=== PATIENT | male | born 1945 | race Caucasian/White ===

== ENCOUNTER 2022-01-03 13:43 | Inpatient (IN) | payer OTHER ==
[~2022-01-03] VITALS: Ht 172.7 cm; Wt 74.1 kg
[2022-01-03] MEDS ORDERED: 0.9%NACL 1000ML 1,000 ML IV SCH (14:30)
[2022-01-03 15:12] LABS: BASOPHILS % (AUTO) 0.5 % (0.0-5.0); EOSINOPHILS % (AUTO) 2.2 % (0.0-8.0); HEMATOCRIT 36.1 % (42-54); LYMPHOCYTES % (AUTO) 19.6 % (21.0-51.0); MEAN CORPUSCULAR HEMOGLOBIN 28.3 pg (27.0-33.0); MEAN CORPUSCULAR HGB CONC 32.4 g/dL (32.0-36.0); MEAN CORPUSCULAR VOLUME 87.2 fL (79-99); MONOCYTES % (AUTO) 5.9 % (3.0-13.0); NEUTROPHILS % (AUTO) 71.4 % (40.0-77.0); PLATELET COUNT (AUTO) 349 K/uL (130-400); RED BLOOD CELL COUNT(AUTO) 4.14 MIL/uL (4.50-6.20); RED CELL DISTRIBUTION WIDTH 14.6 % (11.0-15.5)
[2022-01-03 15:39] LABS: CREATININE 1.1 mg/dL (0.5-1.5)
[2022-01-03 15:43] LABS: ALBUMIN 3.7 g/dL (3.5-5.0)
[2022-01-03] MEDS ORDERED: VANCOMYCIN 1G VIAL IVPB ONE (16:00)
[2022-01-03] MEDS ORDERED: ZOSYN 3.375GM +NS 50ML IV ONE (16:00)
[2022-01-03] MEDS ORDERED: MORPHINE 4 MG SYG IVP ONE (16:00)
[2022-01-03] MEDS ORDERED: ONDANSETRON 4MG INJ IVP ONE (16:00)
[2022-01-03] MEDS ORDERED: VANCOMYCIN 1G/250ML KIT 250 ML IV ONE (16:35)
[2022-01-03 16:37] LABS: ERYTHROCYTE SEDIMENTATION RATE 103 MM/HR (0-20)
[2022-01-03] MEDS: ZOSYN 3.375GM +NS 50ML IV SCH (19:00)
[2022-01-03] MEDS ORDERED: ACETAMINOPHEN 325 MG TAB PO PRN (19:00)
[2022-01-03] MEDS: HEPARIN 5,000 UNIT VIAL SQ SCH (19:00)
[2022-01-03] MEDS ORDERED: ONDANSETRON 4MG INJ IVP PRN (19:00)
[2022-01-03] MEDS ORDERED: VANCOMYCIN PROTOCOL PER PHARMACY IV SCH ×2 (20:00→20:30)
[2022-01-03] MEDS ORDERED: VANCOMYCIN 1.5 GM/250 ML BAG 250 ML IV ONE (20:30)
[2022-01-03] MEDS: INSULIN HUMULIN R 100 UNIT/ML 3ML SQ SCH (21:00)
[2022-01-03] MEDS: FAMOTIDINE 20MG TAB PO SCH (22:05)
[2022-01-04] MEDS: HYDROCODONE/ACETAMINOPHEN 5/325 MG TAB PO PRN ×4 (00:35→21:06)
[2022-01-04 02:49] VITALS: BP 171/88
[2022-01-04] MEDS: ZOSYN 3.375GM +NS 50ML IV SCH ×3 (03:17→20:00)
[2022-01-04] MEDS ORDERED: ASPI-1012 PO (06:24)
[2022-01-04] MEDS ORDERED: ATOR40TA71 PO (06:24)
[2022-01-04] MEDS ORDERED: METO50TA18 PO (06:24)
[2022-01-04] MEDS ORDERED: CLIN-141 PO (06:24)
[2022-01-04] MEDS ORDERED: FERR325T22 PO (06:24)
[2022-01-04] MEDS ORDERED: CHOL-34 PO (06:24)
[2022-01-04] MEDS ORDERED: CYAN100099 PO (06:24)
[2022-01-04] MEDS ORDERED: AMLO-258 PO (06:24)
[2022-01-04] MEDS ORDERED: [UNRECOGNIZED DRUG - OTHER] PO (06:24)
[2022-01-04] MEDS ORDERED: VANC125C6 PO (06:24)
[2022-01-04] MEDS ORDERED: METF-444 PO (06:24)
[2022-01-04] MEDS ORDERED: LOSA1TAB42 PO (06:24)
[2022-01-04] MEDS ORDERED: HYDR-4060 PO (06:24)
[2022-01-04 06:27] LABS: BASOPHILS % (AUTO) 0.7 % (0.0-5.0); EOSINOPHILS % (AUTO) 4.4 % (0.0-8.0); HEMATOCRIT 33.7 % (42-54); LYMPHOCYTES % (AUTO) 18.2 % (21.0-51.0); MEAN CORPUSCULAR HEMOGLOBIN 28.4 pg (27.0-33.0); MEAN CORPUSCULAR HGB CONC 32.6 g/dL (32.0-36.0); MEAN CORPUSCULAR VOLUME 86.9 fL (79-99); MONOCYTES % (AUTO) 7.4 % (3.0-13.0); PLATELET COUNT (AUTO) 318 K/uL (130-400); RED BLOOD CELL COUNT(AUTO) 3.88 MIL/uL (4.50-6.20); RED CELL DISTRIBUTION WIDTH 14.6 % (11.0-15.5); WHITE BLOOD COUNT (AUTO) 13.8 K/uL (4.8-10.8)
[2022-01-04 06:33] LABS: POTASSIUM 4.3 mmol/L (3.5-5.1)
[2022-01-04] MEDS: HEPARIN 5,000 UNIT VIAL SQ SCH ×2 (06:46→20:02)
[2022-01-04] MEDS: INSULIN HUMULIN R 100 UNIT/ML 3ML SQ SCH ×4 (06:49→20:03)
[2022-01-04 07:30] VITALS: BP 149/80
[2022-01-04] MEDS: FAMOTIDINE 20MG TAB PO SCH ×2 (09:33→20:03)
[2022-01-04 11:25] VITALS: BP 145/77
[2022-01-04] MEDS: VANCOMYCIN 1.5 GM/250 ML BAG 250 ML IV SCH (14:48)
[2022-01-04 15:30] VITALS: BP 156/77
[2022-01-04] MEDS: ATORVASTATIN 40 MG TABLET PO SCH (20:03)
[2022-01-04] MEDS: METOPROLOL TARTRATE 50 MG TAB PO SCH (20:03)
[2022-01-04 20:04] VITALS: BP 141/73
[2022-01-04 23:21] VITALS: BP 153/75
[2022-01-05] MEDS: HYDROCODONE/ACETAMINOPHEN 5/325 MG TAB PO PRN ×5 (01:45→20:14)
[2022-01-05 03:40] VITALS: BP 136/72
[2022-01-05] MEDS: ZOSYN 3.375GM +NS 50ML IV SCH ×3 (04:27→19:58)
[2022-01-05 05:18] LABS: BASOPHILS % (AUTO) 0.6 % (0.0-5.0); EOSINOPHILS % (AUTO) 5.8 % (0.0-8.0); HEMATOCRIT 31.3 % (42-54); LYMPHOCYTES % (AUTO) 25.8 % (21.0-51.0); MEAN CORPUSCULAR HEMOGLOBIN 28.7 pg (27.0-33.0); MEAN CORPUSCULAR HGB CONC 33.2 g/dL (32.0-36.0); MEAN CORPUSCULAR VOLUME 86.2 fL (79-99); MONOCYTES % (AUTO) 7.9 % (3.0-13.0); NEUTROPHILS % (AUTO) 59.6 % (40.0-77.0); PLATELET COUNT (AUTO) 306 K/uL (130-400); RED BLOOD CELL COUNT(AUTO) 3.63 MIL/uL (4.50-6.20); RED CELL DISTRIBUTION WIDTH 14.4 % (11.0-15.5); WHITE BLOOD COUNT (AUTO) 10.4 K/uL (4.8-10.8)
[2022-01-05 05:43] LABS: ALBUMIN 3.1 g/dL (3.5-5.0); MAGNESIUM 1.4 mg/dL (1.80-2.40); POTASSIUM 3.7 mmol/L (3.5-5.1); TOTAL PROTEIN, SERUM 7.6 g/dL (6.0-8.3)
[2022-01-05] MEDS: HEPARIN 5,000 UNIT VIAL SQ SCH ×2 (06:11→19:00)
[2022-01-05] MEDS ORDERED: DEXTROSE 50%-WATER 50 ML DISP.SYRIN IV PRN (07:30)
[2022-01-05] MEDS: INSULIN HUMULIN R 100 UNIT/ML 3ML SQ SCH ×4 (07:30→19:59)
[2022-01-05] MEDS ORDERED: GLUCAGON 1MG KIT 1 MG ML IM PRN (07:30)
[2022-01-05 08:03] VITALS: BP 143/72
[2022-01-05] MEDS: AMLODIPINE 5 MG TAB PO SCH (08:24)
[2022-01-05] MEDS: METOPROLOL TARTRATE 50 MG TAB PO SCH ×2 (08:24→19:58)
[2022-01-05] MEDS: LOSARTAN 100 MG TABLET PO SCH (08:24)
[2022-01-05] MEDS: ASPIRIN 325MG TAB PO SCH (08:24)
[2022-01-05] MEDS: FAMOTIDINE 20MG TAB PO SCH ×2 (08:25→19:58)
[2022-01-05] MEDS: HYDROCHLOROTHIAZIDE 25 MG TABLET PO SCH (08:25)
[2022-01-05 12:00] VITALS: BP 160/70
[2022-01-05] MEDS: VANCOMYCIN 1.5 GM/250 ML BAG 250 ML IV SCH (13:05)
[2022-01-05 16:00] VITALS: BP 147/97
[2022-01-05 19:51] VITALS: BP 80/58
[2022-01-05] MEDS: ATORVASTATIN 40 MG TABLET PO SCH (19:58)
[2022-01-05 20:14] LABS: INR 0.94 (0.85-1.15); PROTHROMBIN TIME 10.3 SEC (9.6-11.6)
[2022-01-05 20:16] LABS: PARTIAL THROMBOPLASTIN TIME 29.8 SEC (26.3-35.5)
[2022-01-05] MEDS ORDERED: HEPARIN 25,000 UNITS/250ML D5W 250 ML IV SCH (21:00)
[2022-01-05 23:36] VITALS: BP 84/53
[2022-01-06] VITALS (12 sets, daily range): BP systolic 115–180; BP diastolic 36–78
[2022-01-06] MEDS: HYDROCODONE/ACETAMINOPHEN 5/325 MG TAB PO PRN ×4 (01:24→21:09)
[2022-01-06] MEDS: ZOSYN 3.375GM +NS 50ML IV SCH ×3 (03:51→21:18)
[2022-01-06 05:41] LABS: BASOPHILS % (AUTO) 0.5 % (0.0-5.0); EOSINOPHILS % (AUTO) 5.9 % (0.0-8.0); HEMATOCRIT 33.1 % (42-54); LYMPHOCYTES % (AUTO) 27.6 % (21.0-51.0); MEAN CORPUSCULAR HEMOGLOBIN 28.5 pg (27.0-33.0); MEAN CORPUSCULAR HGB CONC 33.2 g/dL (32.0-36.0); MEAN CORPUSCULAR VOLUME 85.8 fL (79-99); MONOCYTES % (AUTO) 7.6 % (3.0-13.0); NEUTROPHILS % (AUTO) 58.2 % (40.0-77.0); PLATELET COUNT (AUTO) 287 K/uL (130-400); RED BLOOD CELL COUNT(AUTO) 3.86 MIL/uL (4.50-6.20); RED CELL DISTRIBUTION WIDTH 14.4 % (11.0-15.5); WHITE BLOOD COUNT (AUTO) 12.5 K/uL (4.8-10.8)
[2022-01-06 05:52] LABS: MAGNESIUM 1.6 mg/dL (1.80-2.40); POTASSIUM 3.9 mmol/L (3.5-5.1)
[2022-01-06] MEDS: HEPARIN 5,000 UNIT VIAL SQ SCH ×2 (06:07→21:26)
[2022-01-06] MEDS: INSULIN HUMULIN R 100 UNIT/ML 3ML SQ SCH ×3 (06:07→20:54)
[2022-01-06 06:10] LABS: PROTHROMBIN TIME 10.9 SEC (9.6-11.6)
[2022-01-06 06:31] LABS: PARTIAL THROMBOPLASTIN TIME 136.1 SEC (26.3-35.5)
[2022-01-06 07:01] LABS: ERYTHROCYTE SEDIMENTATION RATE 86 MM/HR (0-20)
[2022-01-06] MEDS: METOPROLOL TARTRATE 50 MG TAB PO SCH ×2 (09:00→21:48)
[2022-01-06] MEDS: LOSARTAN 100 MG TABLET PO SCH (09:00)
[2022-01-06] MEDS: FAMOTIDINE 20MG TAB PO SCH ×2 (09:00→21:08)
[2022-01-06] MEDS: HYDROCHLOROTHIAZIDE 25 MG TABLET PO SCH (09:00)
[2022-01-06] MEDS: ASPIRIN 325MG TAB PO SCH (09:00)
[2022-01-06] MEDS: AMLODIPINE 5 MG TAB PO SCH (09:00)
[2022-01-06] MEDS ORDERED: IODIXANOL 320 MG/ML 100 ML VIAL ONE (09:50)
[2022-01-06] MEDS ORDERED: LIDOCAINE HCL-MPF 2% 10ML AMP IJ ONE (09:50)
[2022-01-06] MEDS ORDERED: NITROGLYCERIN 50MG VIAL ONE (09:50)
[2022-01-06] MEDS ORDERED: HEPARIN 10,000 UNIT/10ML (1,000 UNIT/ML) VIAL ONE ×2 (10:02→11:00)
[2022-01-06] MEDS ORDERED: MIDAZOLAM HCL 1 MG/ML 2ML VIAL ONE (10:04)
[2022-01-06] MEDS ORDERED: NICARDIPINE 25MG INJ IV ONE (10:04)
[2022-01-06] MEDS ORDERED: FENTANYL CITRATE PF 50 MCG/1 ML 2ML VIAL ONE (10:04)
[2022-01-06] MEDS ORDERED: ASPIRIN 325MG EC TAB PO ONE (11:46)
[2022-01-06] MEDS ORDERED: CLOPIDOGREL 300MG TAB ONE (11:46)
[2022-01-06] MEDS ORDERED: GLUCAGON 1MG KIT 1 MG ML IM PRN (12:30)
[2022-01-06] MEDS ORDERED: DEXTROSE 50%-WATER 50 ML DISP.SYRIN IV PRN (12:30)
[2022-01-06] MEDS ORDERED: 0.9%NACL 1000ML 1,000 ML IV SCH (12:30)
[2022-01-06] MEDS: VANCOMYCIN 1.5 GM/250 ML BAG 250 ML IV SCH (13:15)
[2022-01-06] MEDS: MAGNESIUM 2GM PREMIX 50ML 50 ML IV PRN (18:09)
[2022-01-06] MEDS: ATORVASTATIN 40 MG TABLET PO SCH (21:08)
[2022-01-07 00:03] VITALS: BP 122/70
[2022-01-07] MEDS: HYDROCODONE/ACETAMINOPHEN 5/325 MG TAB PO PRN ×5 (01:25→21:02)
[2022-01-07] MEDS: ZOSYN 3.375GM +NS 50ML IV SCH ×3 (03:19→20:38)
[2022-01-07 04:27] VITALS: BP 120/66
[2022-01-07] MEDS: INSULIN HUMULIN R 100 UNIT/ML 3ML SQ SCH ×4 (06:05→20:40)
[2022-01-07] MEDS: HEPARIN 5,000 UNIT VIAL SQ SCH ×2 (06:48→19:44)
[2022-01-07 07:35] VITALS: BP 131/74
[2022-01-07] MEDS: ASPIRIN 325MG TAB PO SCH (09:00)
[2022-01-07] MEDS: FAMOTIDINE 20MG TAB PO SCH ×2 (09:00→20:39)
[2022-01-07] MEDS: AMLODIPINE 5 MG TAB PO SCH (09:00)
[2022-01-07] MEDS: METOPROLOL TARTRATE 50 MG TAB PO SCH ×2 (09:04→20:39)
[2022-01-07] MEDS: HYDROCHLOROTHIAZIDE 25 MG TABLET PO SCH (09:05)
[2022-01-07] MEDS: LOSARTAN 100 MG TABLET PO SCH (09:05)
[2022-01-07 11:35] VITALS: BP 118/66
[2022-01-07] MEDS: VANCOMYCIN 1.5 GM/250 ML BAG 250 ML IV SCH (12:37)
[2022-01-07] MEDS: MORPHINE 2 MG SYG IVP PRN (14:33)
[2022-01-07 15:30] VITALS: BP 123/69
[2022-01-07 19:47] VITALS: BP 128/70
[2022-01-07] MEDS: ATORVASTATIN 40 MG TABLET PO SCH (20:39)
[2022-01-08 00:36] VITALS: BP 102/61
[2022-01-08] MEDS: HYDROCODONE/ACETAMINOPHEN 5/325 MG TAB PO PRN ×5 (02:13→22:54)
[2022-01-08] MEDS: ZOSYN 3.375GM +NS 50ML IV SCH ×4 (02:14→22:53)
[2022-01-08 04:31] VITALS: BP 142/59
[2022-01-08 04:40] LABS: BASOPHILS % (AUTO) 0.5 % (0.0-5.0); EOSINOPHILS % (AUTO) 6.4 % (0.0-8.0); HEMATOCRIT 29.6 % (42-54); LYMPHOCYTES % (AUTO) 19.3 % (21.0-51.0); MEAN CORPUSCULAR HEMOGLOBIN 28.7 pg (27.0-33.0); MEAN CORPUSCULAR HGB CONC 33.1 g/dL (32.0-36.0); MEAN CORPUSCULAR VOLUME 86.8 fL (79-99); MONOCYTES % (AUTO) 9.4 % (3.0-13.0); NEUTROPHILS % (AUTO) 64.2 % (40.0-77.0); PLATELET COUNT (AUTO) 242 K/uL (130-400); RED BLOOD CELL COUNT(AUTO) 3.41 MIL/uL (4.50-6.20); RED CELL DISTRIBUTION WIDTH 14.2 % (11.0-15.5); WHITE BLOOD COUNT (AUTO) 9.4 K/uL (4.8-10.8)
[2022-01-08 04:47] LABS: MAGNESIUM 1.7 mg/dL (1.80-2.40); POTASSIUM 3.4 mmol/L (3.5-5.1)
[2022-01-08] MEDS: MAGNESIUM 2GM PREMIX 50ML 50 ML IV PRN (05:39)
[2022-01-08] MEDS: HEPARIN 5,000 UNIT VIAL SQ SCH ×2 (05:57→18:40)
[2022-01-08] MEDS: INSULIN HUMULIN R 100 UNIT/ML 3ML SQ SCH ×4 (06:22→19:55)
[2022-01-08 08:30] VITALS: BP 148/64
[2022-01-08] MEDS: METOPROLOL TARTRATE 50 MG TAB PO SCH ×2 (08:36→19:55)
[2022-01-08] MEDS: FAMOTIDINE 20MG TAB PO SCH ×2 (08:36→19:55)
[2022-01-08] MEDS: ASPIRIN 325MG TAB PO SCH (08:36)
[2022-01-08] MEDS: HYDROCHLOROTHIAZIDE 25 MG TABLET PO SCH (08:37)
[2022-01-08] MEDS: LOSARTAN 100 MG TABLET PO SCH (08:41)
[2022-01-08] MEDS: AMLODIPINE 5 MG TAB PO SCH (09:00)
[2022-01-08 11:48] VITALS: BP 126/69
[2022-01-08] MEDS: VANCOMYCIN 1.5 GM/250 ML BAG 250 ML IV SCH (12:26)
[2022-01-08] MEDS ORDERED: PHARMACY COMMUNICATION MISC SCH (14:30)
[2022-01-08 16:00] VITALS: BP 132/71
[2022-01-08] MEDS ORDERED: LIDOCAINE HCL-MPF 1% 2ML VIAL IV PRN (16:30)
[2022-01-08] MEDS ORDERED: POTASSIUM CHLORIDE 20MEQ/100ML 100 ML IV PRN (16:30)
[2022-01-08] MEDS: KCL 20 MEQ ERTAB PO PRN ×2 (18:41→22:53)
[2022-01-08] MEDS: ATORVASTATIN 40 MG TABLET PO SCH (19:55)
[2022-01-08 20:24] VITALS: BP 136/72
[2022-01-09 00:30] VITALS: BP 135/71
[2022-01-09] MEDS: HYDROCODONE/ACETAMINOPHEN 5/325 MG TAB PO PRN ×5 (03:35→23:24)
[2022-01-09 03:47] VITALS: BP 136/70
[2022-01-09] MEDS: ZOSYN 3.375GM +NS 50ML IV SCH ×3 (05:24→23:24)
[2022-01-09] MEDS: HEPARIN 5,000 UNIT VIAL SQ SCH ×2 (05:29→20:56)
[2022-01-09 05:41] LABS: MAGNESIUM 1.7 mg/dL (1.80-2.40); POTASSIUM 3.5 mmol/L (3.5-5.1)
[2022-01-09] MEDS: INSULIN HUMULIN R 100 UNIT/ML 3ML SQ SCH ×4 (06:39→20:36)
[2022-01-09 08:38] VITALS: BP 158/67
[2022-01-09] MEDS: MORPHINE 2 MG SYG IVP PRN (08:41)
[2022-01-09] MEDS: FAMOTIDINE 20MG TAB PO SCH ×2 (08:57→20:55)
[2022-01-09] MEDS: LOSARTAN 100 MG TABLET PO SCH (08:57)
[2022-01-09] MEDS: ASPIRIN 325MG TAB PO SCH (08:59)
[2022-01-09] MEDS: HYDROCHLOROTHIAZIDE 25 MG TABLET PO SCH (08:59)
[2022-01-09] MEDS: AMLODIPINE 5 MG TAB PO SCH (08:59)
[2022-01-09] MEDS: METOPROLOL TARTRATE 50 MG TAB PO SCH ×2 (09:00→20:55)
[2022-01-09] MEDS: VANCOMYCIN 1.5 GM/250 ML BAG 250 ML IV SCH (12:00)
[2022-01-09 12:34] VITALS: BP 139/58
[2022-01-09 15:37] VITALS: BP 152/63
[2022-01-09 20:54] VITALS: BP 146/72
[2022-01-09] MEDS: ATORVASTATIN 40 MG TABLET PO SCH (20:55)
[2022-01-10 00:11] VITALS: BP 144/72
[2022-01-10 04:46] VITALS: BP 154/73
[2022-01-10] MEDS: INSULIN HUMULIN R 100 UNIT/ML 3ML SQ SCH ×4 (05:50→20:43)
[2022-01-10] MEDS: HEPARIN 5,000 UNIT VIAL SQ SCH ×2 (05:51→17:45)
[2022-01-10] MEDS: ZOSYN 3.375GM +NS 50ML IV SCH ×3 (06:17→23:26)
[2022-01-10] MEDS: HYDROCODONE/ACETAMINOPHEN 5/325 MG TAB PO PRN ×4 (06:17→20:39)
[2022-01-10 08:00] VITALS: BP 159/77
[2022-01-10 08:18] LABS: BASOPHILS % (AUTO) 0.8 % (0.0-5.0); EOSINOPHILS % (AUTO) 5.4 % (0.0-8.0); HEMATOCRIT 32.2 % (42-54); LYMPHOCYTES % (AUTO) 27.4 % (21.0-51.0); MEAN CORPUSCULAR HEMOGLOBIN 28.6 pg (27.0-33.0); MEAN CORPUSCULAR HGB CONC 33.2 g/dL (32.0-36.0); MEAN CORPUSCULAR VOLUME 86.1 fL (79-99); MONOCYTES % (AUTO) 9.5 % (3.0-13.0); NEUTROPHILS % (AUTO) 56.7 % (40.0-77.0); PLATELET COUNT (AUTO) 283 K/uL (130-400); RED BLOOD CELL COUNT(AUTO) 3.74 MIL/uL (4.50-6.20); RED CELL DISTRIBUTION WIDTH 14.2 % (11.0-15.5); WHITE BLOOD COUNT (AUTO) 10.5 K/uL (4.8-10.8)
[2022-01-10 08:22] LABS: ALBUMIN 3.1 g/dL (3.5-5.0); POTASSIUM 3.6 mmol/L (3.5-5.1); TOTAL PROTEIN, SERUM 7.7 g/dL (6.0-8.3)
[2022-01-10] MEDS: FAMOTIDINE 20MG TAB PO SCH ×2 (08:33→20:39)
[2022-01-10] MEDS: LOSARTAN 100 MG TABLET PO SCH (08:33)
[2022-01-10] MEDS: HYDROCHLOROTHIAZIDE 25 MG TABLET PO SCH (08:33)
[2022-01-10] MEDS: METOPROLOL TARTRATE 50 MG TAB PO SCH ×2 (08:34→20:39)
[2022-01-10] MEDS: ASPIRIN 325MG TAB PO SCH (08:34)
[2022-01-10] MEDS: AMLODIPINE 5 MG TAB PO SCH (08:34)
[2022-01-10 12:00] VITALS: BP 120/69
[2022-01-10] MEDS: VANCOMYCIN 1.5 GM/250 ML BAG 250 ML IV SCH (12:48)
[2022-01-10 16:00] VITALS: BP 133/60
[2022-01-10] MEDS: ATORVASTATIN 40 MG TABLET PO SCH (20:39)
[2022-01-10 20:54] VITALS: BP 136/58
[2022-01-11] VITALS (27 sets, daily range): BP systolic 102–174; BP diastolic 45–92
[2022-01-11] MEDS: HYDROCODONE/ACETAMINOPHEN 5/325 MG TAB PO PRN ×4 (01:40→20:15)
[2022-01-11 05:06] LABS: BASOPHILS % (AUTO) 0.7 % (0.0-5.0); EOSINOPHILS % (AUTO) 4.1 % (0.0-8.0); LYMPHOCYTES % (AUTO) 30.7 % (21.0-51.0); MEAN CORPUSCULAR HEMOGLOBIN 28.1 pg (27.0-33.0); MEAN CORPUSCULAR HGB CONC 32.6 g/dL (32.0-36.0); MEAN CORPUSCULAR VOLUME 86.2 fL (79-99); MONOCYTES % (AUTO) 8.8 % (3.0-13.0); NEUTROPHILS % (AUTO) 55.4 % (40.0-77.0); PLATELET COUNT (AUTO) 305 K/uL (130-400); RED BLOOD CELL COUNT(AUTO) 4.06 MIL/uL (4.50-6.20); RED CELL DISTRIBUTION WIDTH 14.4 % (11.0-15.5); WHITE BLOOD COUNT (AUTO) 10.8 K/uL (4.8-10.8)
[2022-01-11] MEDS: METOPROLOL TARTRATE 50 MG TAB PO SCH ×2 (05:18→20:15)
[2022-01-11 05:21] LABS: POTASSIUM 3.7 mmol/L (3.5-5.1)
[2022-01-11 05:22] LABS: INR 0.94 (0.85-1.15); PROTHROMBIN TIME 10.3 SEC (9.6-11.6)
[2022-01-11 05:24] LABS: PARTIAL THROMBOPLASTIN TIME 29.6 SEC (26.3-35.5)
[2022-01-11] MEDS: INSULIN HUMULIN R 100 UNIT/ML 3ML SQ SCH ×4 (05:49→20:15)
[2022-01-11] MEDS: HEPARIN 5,000 UNIT VIAL SQ SCH ×2 (05:49→18:41)
[2022-01-11] MEDS: ZOSYN 3.375GM +NS 50ML IV SCH ×2 (06:00→15:26)
[2022-01-11] MEDS ORDERED: CEFAZOLIN SODIUM 1 GM VIAL IVP PRN (07:00)
[2022-01-11] MEDS ORDERED: MIDAZOLAM HCL 1 MG/ML 2ML VIAL ONE (07:24)
[2022-01-11] MEDS ORDERED: ROCURONIUM 10MG/1ML SYR 10 MG/ML ML ONE (07:24)
[2022-01-11] MEDS ORDERED: PROPOFOL 10 MG/ML 20ML VIAL IV ONE (07:24)
[2022-01-11] MEDS ORDERED: FENTANYL CITRATE PF 50 MCG/1 ML 5ML AMP IV ONE (07:25)
[2022-01-11] MEDS ORDERED: GLYCOPYRROLATE 1 MG/5 ML SYRINGE ONE (08:30)
[2022-01-11] MEDS: FAMOTIDINE 20MG TAB PO SCH ×2 (09:00→20:14)
[2022-01-11] MEDS ORDERED: NEOSTIGMINE 5MG/5ML SYR IV ONE (10:13)
[2022-01-11] MEDS ORDERED: EPHEDRINE SULFATE 50 MG/ML AMPULE ONE (10:22)
[2022-01-11] MEDS ORDERED: ONDANSETRON 4MG INJ ONE (10:31)
[2022-01-11] MEDS ORDERED: TRAMADOL HCL 50 MG TABLET PO PRN ×2 (11:30)
[2022-01-11] MEDS ORDERED: ACETAMINOPHEN 325 MG TAB PO PRN (11:30)
[2022-01-11] MEDS: LOSARTAN 100 MG TABLET PO SCH (12:47)
[2022-01-11] MEDS: AMLODIPINE 5 MG TAB PO SCH (12:47)
[2022-01-11] MEDS: ASPIRIN 325MG TAB PO SCH (12:47)
[2022-01-11] MEDS: HYDROCHLOROTHIAZIDE 25 MG TABLET PO SCH (12:47)
[2022-01-11] MEDS: VANCOMYCIN 1.5 GM/250 ML BAG 250 ML IV SCH (12:47)
[2022-01-11] MEDS: ATORVASTATIN 40 MG TABLET PO SCH (20:14)
[2022-01-12] VITALS (16 sets, daily range): BP systolic 103–137; BP diastolic 40–72
[2022-01-12] MEDS: ZOSYN 3.375GM +NS 50ML IV SCH ×4 (00:05→23:13)
[2022-01-12 03:41] LABS: MEAN CORPUSCULAR HEMOGLOBIN 28.8 pg (27.0-33.0); MEAN CORPUSCULAR HGB CONC 33.8 g/dL (32.0-36.0); MEAN CORPUSCULAR VOLUME 85.3 fL (79-99); RED BLOOD CELL COUNT(AUTO) 3.75 MIL/uL (4.50-6.20); RED CELL DISTRIBUTION WIDTH 14.6 % (11.0-15.5); WHITE BLOOD COUNT (AUTO) 14.4 K/uL (4.8-10.8)
[2022-01-12 04:00] LABS: CREATININE 1.1 mg/dL (0.5-1.5); POTASSIUM 3.8 mmol/L (3.5-5.1)
[2022-01-12] MEDS: INSULIN HUMULIN R 100 UNIT/ML 3ML SQ SCH ×4 (06:22→20:43)
[2022-01-12] MEDS: HEPARIN 5,000 UNIT VIAL SQ SCH ×2 (06:22→18:32)
[2022-01-12] MEDS: HYDROCODONE/ACETAMINOPHEN 5/325 MG TAB PO PRN ×5 (06:23→23:27)
[2022-01-12] MEDS: HYDROCHLOROTHIAZIDE 25 MG TABLET PO SCH (08:34)
[2022-01-12] MEDS: METOPROLOL TARTRATE 50 MG TAB PO SCH ×2 (08:34→20:34)
[2022-01-12] MEDS: FAMOTIDINE 20MG TAB PO SCH ×2 (08:34→20:34)
[2022-01-12] MEDS: AMLODIPINE 5 MG TAB PO SCH (08:34)
[2022-01-12] MEDS: LOSARTAN 100 MG TABLET PO SCH (10:14)
[2022-01-12] MEDS: VANCOMYCIN 1.5 GM/250 ML BAG 250 ML IV SCH (11:29)
[2022-01-12] MEDS ORDERED: PROPOFOL 1000 MG/100 ML 100 ML IV ONE (11:57)
[2022-01-12] MEDS ORDERED: BUPIVACAINE/PF 0.5% 10ML VIAL ONE (12:00)
[2022-01-12] MEDS ORDERED: 0.9%NACL 1000ML 1,000 ML IV ONE (12:14)
[2022-01-12] MEDS ORDERED: LIDOCAINE HCL MPF 1% 5ML VIAL ONE (12:16)
[2022-01-12] MEDS ORDERED: FENTANYL CITRATE PF 50 MCG/1 ML 2ML VIAL ONE ×2 (12:16)
[2022-01-12] MEDS ORDERED: LIDOCAINE HCL 1% 10 ML VIAL ONE (12:31)
[2022-01-12] MEDS ORDERED: EPHEDRINE SULFATE 50 MG/ML AMPULE ONE (13:00)
[2022-01-12] MEDS ORDERED: LIDOCAINE HCL 1% 20 ML VIAL MISC SCH (13:00)
[2022-01-12] MEDS ORDERED: PHENYLEPHRINE HCL 10 MG/ML 1ML VIAL IV ONE ×2 (13:00→13:06)
[2022-01-12] MEDS: ASPIRIN 325MG TAB PO SCH (16:34)
[2022-01-12] MEDS: ATORVASTATIN 40 MG TABLET PO SCH (20:34)
[2022-01-13 04:01] VITALS: BP 133/77
[2022-01-13 05:07] LABS: ALBUMIN 2.8 g/dL (3.5-5.0); CREATININE 2.4 mg/dL (0.5-1.5); MAGNESIUM 1.6 mg/dL (1.80-2.40); POTASSIUM 3.3 mmol/L (3.5-5.1); TOTAL PROTEIN, SERUM 7.1 g/dL (6.0-8.3)
[2022-01-13] MEDS: HEPARIN 5,000 UNIT VIAL SQ SCH ×2 (05:58→18:10)
[2022-01-13] MEDS: ZOSYN 3.375GM +NS 50ML IV SCH ×3 (05:59→23:21)
[2022-01-13] MEDS: KCL 20 MEQ ERTAB PO PRN ×2 (05:59→08:27)
[2022-01-13] MEDS: INSULIN HUMULIN R 100 UNIT/ML 3ML SQ SCH ×4 (06:00→20:53)
[2022-01-13] MEDS: HYDROCODONE/ACETAMINOPHEN 5/325 MG TAB PO PRN ×5 (06:07→21:12)
[2022-01-13 07:58] VITALS: BP 147/71
[2022-01-13] MEDS: METOPROLOL TARTRATE 50 MG TAB PO SCH ×2 (08:26→20:38)
[2022-01-13] MEDS: ASPIRIN 325MG TAB PO SCH (08:26)
[2022-01-13] MEDS: AMLODIPINE 5 MG TAB PO SCH (08:26)
[2022-01-13] MEDS: FAMOTIDINE 20MG TAB PO SCH ×2 (08:27→20:38)
[2022-01-13] MEDS: CLOPIDOGREL 75MG TAB PO SCH (08:27)
[2022-01-13] MEDS: HYDROCHLOROTHIAZIDE 25 MG TABLET PO SCH (08:27)
[2022-01-13] MEDS: LOSARTAN 100 MG TABLET PO SCH (08:28)
[2022-01-13] MEDS: MAGNESIUM 2GM PREMIX 50ML 50 ML IV PRN (08:29)
[2022-01-13 11:48] VITALS: BP 143/52
[2022-01-13] MEDS: VANCOMYCIN 1.5 GM/250 ML BAG 250 ML IV SCH (13:18)
[2022-01-13 15:48] VITALS: BP 148/72
[2022-01-13 19:05] VITALS: BP 122/69
[2022-01-13] MEDS: ATORVASTATIN 40 MG TABLET PO SCH (20:38)
[2022-01-13 23:14] VITALS: BP 138/69
[2022-01-14 03:52] VITALS: BP 138/65
[2022-01-14] MEDS: HYDROCODONE/ACETAMINOPHEN 5/325 MG TAB PO PRN ×4 (04:17→22:46)
[2022-01-14 04:44] LABS: BASOPHILS % (AUTO) 0.3 % (0.0-5.0); EOSINOPHILS % (AUTO) 1.5 % (0.0-8.0); LYMPHOCYTES % (AUTO) 12.7 % (21.0-51.0); MEAN CORPUSCULAR HEMOGLOBIN 28.9 pg (27.0-33.0); MEAN CORPUSCULAR VOLUME 87.7 fL (79-99); MONOCYTES % (AUTO) 12.1 % (3.0-13.0); PLATELET COUNT (AUTO) 253 K/uL (130-400); RED BLOOD CELL COUNT(AUTO) 3.42 MIL/uL (4.50-6.20); RED CELL DISTRIBUTION WIDTH 14.7 % (11.0-15.5); WHITE BLOOD COUNT (AUTO) 14.9 K/uL (4.8-10.8)
[2022-01-14 04:51] LABS: CREATININE 3.7 mg/dL (0.5-1.5); MAGNESIUM 2.2 mg/dL (1.80-2.40); POTASSIUM 3.6 mmol/L (3.5-5.1)
[2022-01-14] MEDS: KCL 20 MEQ ERTAB PO PRN (05:05)
[2022-01-14] MEDS: INSULIN HUMULIN R 100 UNIT/ML 3ML SQ SCH ×4 (07:30→21:00)
[2022-01-14 08:00] VITALS: BP 144/75
[2022-01-14] MEDS: ZOSYN 3.375GM +NS 50ML IV SCH (08:08)
[2022-01-14] MEDS: HEPARIN 5,000 UNIT VIAL SQ SCH ×2 (08:09→20:57)
[2022-01-14] MEDS: AMLODIPINE 5 MG TAB PO SCH (08:11)
[2022-01-14] MEDS: FAMOTIDINE 20MG TAB PO SCH ×2 (08:11→20:56)
[2022-01-14] MEDS: ASPIRIN 325MG TAB PO SCH (08:11)
[2022-01-14] MEDS: METOPROLOL TARTRATE 50 MG TAB PO SCH ×2 (08:11→20:56)
[2022-01-14] MEDS: HYDROCHLOROTHIAZIDE 25 MG TABLET PO SCH (08:11)
[2022-01-14] MEDS: LOSARTAN 100 MG TABLET PO SCH (08:11)
[2022-01-14] MEDS: CLOPIDOGREL 75MG TAB PO SCH (08:12)
[2022-01-14] MEDS: 0.9%NACL 1000ML 1,000 ML IV SCH ×2 (11:25→22:49)
[2022-01-14 12:00] VITALS: BP 141/65
[2022-01-14 16:00] VITALS: BP 124/60
[2022-01-14 19:00] VITALS: BP 141/71
[2022-01-14] MEDS: ATORVASTATIN 40 MG TABLET PO SCH (20:56)
[2022-01-14] MEDS: LINEZOLID 600 MG/ISO-OSM 300 ML IV SCH (20:56)
[2022-01-15] VITALS (7 sets, daily range): BP systolic 141–151; BP diastolic 55–72
[2022-01-15] MEDS: HYDROCODONE/ACETAMINOPHEN 5/325 MG TAB PO PRN ×5 (03:54→22:45)
[2022-01-15 04:21] LABS: BASOPHILS % (AUTO) 0.3 % (0.0-5.0); EOSINOPHILS % (AUTO) 2.6 % (0.0-8.0); HEMATOCRIT 27.3 % (42-54); LYMPHOCYTES % (AUTO) 15.2 % (21.0-51.0); MEAN CORPUSCULAR HEMOGLOBIN 29.3 pg (27.0-33.0); MEAN CORPUSCULAR HGB CONC 33.7 g/dL (32.0-36.0); MEAN CORPUSCULAR VOLUME 86.9 fL (79-99); MONOCYTES % (AUTO) 12.2 % (3.0-13.0); NEUTROPHILS % (AUTO) 69.3 % (40.0-77.0); PLATELET COUNT (AUTO) 265 K/uL (130-400); RED BLOOD CELL COUNT(AUTO) 3.14 MIL/uL (4.50-6.20); RED CELL DISTRIBUTION WIDTH 14.8 % (11.0-15.5); WHITE BLOOD COUNT (AUTO) 11.8 K/uL (4.8-10.8)
[2022-01-15 04:30] LABS: CREATININE 3.1 mg/dL (0.5-1.5); MAGNESIUM 1.8 mg/dL (1.80-2.40); POTASSIUM 3.3 mmol/L (3.5-5.1)
[2022-01-15] MEDS: KCL 20 MEQ ERTAB PO PRN (05:12)
[2022-01-15] MEDS: MAGNESIUM 2GM PREMIX 50ML 50 ML IV PRN (05:13)
[2022-01-15] MEDS: INSULIN HUMULIN R 100 UNIT/ML 3ML SQ SCH ×4 (07:30→20:06)
[2022-01-15] MEDS: ASPIRIN 325MG TAB PO SCH (08:27)
[2022-01-15] MEDS: LINEZOLID 600 MG/ISO-OSM 300 ML IV SCH ×3 (08:27→21:49)
[2022-01-15] MEDS: CLOPIDOGREL 75MG TAB PO SCH (08:28)
[2022-01-15] MEDS: METOPROLOL TARTRATE 50 MG TAB PO SCH ×2 (08:28→21:50)
[2022-01-15] MEDS: AMLODIPINE 5 MG TAB PO SCH (08:28)
[2022-01-15] MEDS: FAMOTIDINE 20MG TAB PO SCH ×2 (08:28→21:50)
[2022-01-15] MEDS: HEPARIN 5,000 UNIT VIAL SQ SCH ×2 (08:29→21:51)
[2022-01-15] MEDS: POTASSIUM CHLORIDE 10% ELIXIR 20 MEQ/15 ML UDCUP PO PRN ×2 (08:31→08:39)
[2022-01-15 15:27] LABS: INR 0.93 (0.85-1.15); PROTHROMBIN TIME 9.8 SEC (9.6-11.6)
[2022-01-15 15:29] LABS: PARTIAL THROMBOPLASTIN TIME 28.7 SEC (26.3-35.5)
[2022-01-15] MEDS: ATORVASTATIN 40 MG TABLET PO SCH (21:50)
[2022-01-15] MEDS: 0.9%NACL 1000ML 1,000 ML IV SCH (22:01)
[2022-01-16] MEDS: HYDROCODONE/ACETAMINOPHEN 5/325 MG TAB PO PRN ×3 (02:42→10:22)
[2022-01-16 04:33] LABS: BASOPHILS % (AUTO) 0.6 % (0.0-5.0); EOSINOPHILS % (AUTO) 3.9 % (0.0-8.0); HEMATOCRIT 27.7 % (42-54); LYMPHOCYTES % (AUTO) 15.6 % (21.0-51.0); MEAN CORPUSCULAR HEMOGLOBIN 28.7 pg (27.0-33.0); MEAN CORPUSCULAR HGB CONC 33.2 g/dL (32.0-36.0); MEAN CORPUSCULAR VOLUME 86.3 fL (79-99); MONOCYTES % (AUTO) 11.5 % (3.0-13.0); NEUTROPHILS % (AUTO) 68.1 % (40.0-77.0); PLATELET COUNT (AUTO) 289 K/uL (130-400); RED BLOOD CELL COUNT(AUTO) 3.21 MIL/uL (4.50-6.20); RED CELL DISTRIBUTION WIDTH 14.5 % (11.0-15.5); WHITE BLOOD COUNT (AUTO) 10.3 K/uL (4.8-10.8)
[2022-01-16 04:47] VITALS: BP 148/72
[2022-01-16 04:49] LABS: CREATININE 2.5 mg/dL (0.5-1.5); MAGNESIUM 1.8 mg/dL (1.80-2.40); POTASSIUM 3.5 mmol/L (3.5-5.1)
[2022-01-16 04:55] LABS: % IRON SATURATION 10.5 % (30-44)
[2022-01-16] MEDS: INSULIN HUMULIN R 100 UNIT/ML 3ML SQ SCH ×4 (05:01→21:00)
[2022-01-16] MEDS: MAGNESIUM 2GM PREMIX 50ML 50 ML IV PRN (06:24)
[2022-01-16] MEDS: KCL 20 MEQ ERTAB PO PRN (06:24)
[2022-01-16] MEDS: LINEZOLID 600 MG/ISO-OSM 300 ML IV SCH ×2 (06:24→18:16)
[2022-01-16 07:00] VITALS: BP 145/71
[2022-01-16] MEDS ORDERED: IRON SUCROSE COMPLEX 100 MG/5 ML VIAL IVP SCH (09:00)
[2022-01-16] MEDS ORDERED: IRON SUCROSE COMPLEX 100 MG in 0.9%NACL 50ML 50 ML IV SCH (09:00)
[2022-01-16] MEDS: AMLODIPINE 5 MG TAB PO SCH (10:07)
[2022-01-16] MEDS: FAMOTIDINE 20MG TAB PO SCH ×2 (10:07→21:29)
[2022-01-16] MEDS: METOPROLOL TARTRATE 50 MG TAB PO SCH ×2 (10:07→21:29)
[2022-01-16] MEDS: CLOPIDOGREL 75MG TAB PO SCH (10:07)
[2022-01-16] MEDS: ASPIRIN 325MG TAB PO SCH (10:08)
[2022-01-16] MEDS: HEPARIN 5,000 UNIT VIAL SQ SCH ×2 (10:16→20:00)
[2022-01-16 11:00] VITALS: BP 120/69
[2022-01-16] MEDS: 0.9%NACL 1000ML 1,000 ML IV SCH (13:33)
[2022-01-16 16:00] VITALS: BP 131/63
[2022-01-16] MEDS ORDERED: HYDROCODONE/ACETAMINOPHEN 5/325 MG TAB PO PRN (17:30)
[2022-01-16 19:06] VITALS: BP 134/76
[2022-01-16] MEDS: ATORVASTATIN 40 MG TABLET PO SCH (21:29)
[2022-01-17] MEDS ORDERED: ASPIRIN 81 MG EC TAB PO SCH (09:00)
== END 2022-01-16 22:05 | DRG 240 ==
LOC: EDH 13:43 → OBSVTOIN 17:41 → EDHIP 17:41 → INTOOBSV 17:41 → 3DH 01-04 02:27 → 2DH 01-11 09:28
PROVIDERS: ADMIT Hospitalist; ATTEND Hospitalist
PROC: B41F1ZZ Fluoroscopy of Right Lower Extremity Arteries using Low Osmolar Contrast (ICD-10-PCS; principal; 2022-01-06)
PROC: 037Y3ZZ Dilation of Upper Artery, Percutaneous Approach (ICD-10-PCS; 2022-01-06)
PROC: 03F Upper Arteries, Fragmentation (ICD-10-PCS; 2022-01-06)
PROC: B31H1ZZ Fluoroscopy of Right Upper Extremity Arteries using Low Osmolar Contrast (ICD-10-PCS; 2022-01-06)
PROC: 041K0ZL Bypass Right Femoral Artery to Popliteal Artery, Open Approach (ICD-10-PCS; 2022-01-11)
PROC: 30233N1 Transfusion of Nonautologous Red Blood Cells into Peripheral Vein, Percutaneous Approach (ICD-10-PCS; 2022-01-11)
PROC: 0Y6M0ZD Detachment at Right Foot, Partial 4th Ray, Open Approach (ICD-10-PCS; 2022-01-12)
PROC: 0Y6M0ZF Detachment at Right Foot, Partial 5th Ray, Open Approach (ICD-10-PCS; 2022-01-12)
PROC: 0QBQ0ZZ Excision of Right Toe Phalanx, Open Approach (ICD-10-PCS; 2022-01-12)
DX: E11.52 Type 2 diabetes mellitus with diabetic peripheral angiopathy with gangrene (principal); E44.0 Moderate protein-calorie malnutrition; N17.9 Acute kidney failure, unspecified; E87.1 Hypo-osmolality and hyponatremia; M86.8X7 Other osteomyelitis, ankle and foot; L03.115 Cellulitis of right lower limb; Z20.822 Contact with and (suspected) exposure to COVID-19; E11.621 Type 2 diabetes mellitus with foot ulcer; E11.65 Type 2 diabetes mellitus with hyperglycemia; I12.9 Hypertensive chronic kidney disease with stage 1 through stage 4 chronic kidney disease, or unspecified chronic kidney disease; N18.9 Chronic kidney disease, unspecified; D50.9 Iron deficiency anemia, unspecified; E11.22 Type 2 diabetes mellitus with diabetic chronic kidney disease; E11.69 Type 2 diabetes mellitus with other specified complication; E66.9 Obesity, unspecified; E78.00 Pure hypercholesterolemia, unspecified; E83.42 Hypomagnesemia; E87.6 Hypokalemia; I25.10 Atherosclerotic heart disease of native coronary artery without angina pectoris; J44.9 Chronic obstructive pulmonary disease, unspecified; Z74.01 Bed confinement status; Z79.02 Long term (current) use of antithrombotics/antiplatelets; Z79.82 Long term (current) use of aspirin; Z83.3 Family history of diabetes mellitus; Z87.891 Personal history of nicotine dependence; Z89.421 Acquired absence of other right toe(s); Z91.19 Patient's noncompliance with other medical treatment and regimen; Z95.1 Presence of aortocoronary bypass graft; Z95.5 Presence of coronary angioplasty implant and graft; Z68.24 Body mass index [BMI] 24.0-24.9, adult
CPT/HCPCS: 36200; 36415; 37246; 73630; 75716; 80048; 80053; 80202; 82010; 82948; 83540; 83550; 83605; 83735; 84132; 85025; 85027; 85610; 85651; 85730; 86850; 86900; 86901; 86923; 87040; 87070; 87076; 87635; 93926; 93971; 97039; 99156; 99157; C1757; C1769; C1887; C1894; G0378; J1644; J1756; J1815; J2020; J2250; J2270; J2370; J2405; J2543; J2704; J2710; J3010; J3370; J3475; J3490; J7030; J7040; P9016; Q9967